=== PATIENT | female | born 1940 | race Caucasian/White ===

== ENCOUNTER 2024-07-21 09:42 | Outpatient (CLI) | payer OTHER | END 2024-07-21 09:59 | disposition home or self-care (01) | LOC: MAMO-SONO 09:42 | PROVIDERS: ATTEND General Practice | DX: N60.11 Diffuse cystic mastopathy of right breast (principal); N60.12 Diffuse cystic mastopathy of left breast; Z12.31 Encounter for screening mammogram for malignant neoplasm of breast ==

== ENCOUNTER 2024-09-26 11:30 | Emergency (ER) | payer OTHER ==
[~2024-09-26] VITALS: Ht 149.9 cm; Wt 59.0 kg
[2024-09-26] MEDS ORDERED: ALTACE10 MG PO (11:41)
[2024-09-26] MEDS ORDERED: SIMVASTATIN5 MG PO (11:41)
[2024-09-26] MEDS ORDERED: AMLODIPINE-OLM1 EAC2 PO (11:41)
[2024-09-26] MEDS ORDERED: ACID REDUCER20 M1 PO (11:42)
[2024-09-26] MEDS ORDERED: LANTUS SOL100 UNIT/1 SQ (11:42)
[2024-09-26] MEDS ORDERED: JANUMET XR 50-1 EACH PO (11:42)
[2024-09-26] MEDS ORDERED: KETOROLAC TROMETHAMINE 60 MG VIAL IM STA (12:06)
[2024-09-26] MEDS ORDERED: KETOROLAC TROMETHAMINE 60 MG VIAL IM ONE (12:11)
== END 2024-09-26 13:54 | disposition home or self-care (01) ==
LOC: ER 11:30
DX: M54.50 Low back pain, unspecified (principal); I10 Essential (primary) hypertension; Z79.4 Long term (current) use of insulin; E11.9 Type 2 diabetes mellitus without complications
CPT/HCPCS: 72100; 96372; 99283; J1885